=== PATIENT | male | born 1995 | race Caucasian/White ===

== ENCOUNTER 2018-05-28 16:07 | Inpatient (IN) | payer OTHER ==
[2018-05-28] MEDS ORDERED: LORazepam 2 MG/ML SDV VIAL ONE ×2 (16:20→16:21)
[2018-05-28] MEDS ORDERED: SODIUM CHLORIDE 1,000 ML IV STA (16:26)
[2018-05-28 16:38] VITALS: BMI 22.4
--- NOTE | 2018-05-28 16:38 | PDOC ---
History of Present Illness - General Chief Complaint: Seizure Stated Complaint: SEIZURE Time Seen by Provider: 05/28/18 16:20 History Source: Group Home Records, Old Records Exam Limitations: Clinical Condition - History of Present Illness Initial Comments: 23 y/o male presenting to [facility] ER via BLS ambulance from [facility]. Per transfer form, pt has experienced multiple seizures starting yesterday. Duration lasting 20s-3min. Diastat was given today at 14:35. Three seizure episodes were reportedly witnessed today. Unable to determine exciting events. No reported illness. No recent changes in pts medication regimen noted in facility paperwork. Seizures managed by Lamotrigine 62.5mg BID and Carbamazepine XR 400mg BID with abortive PRN Diastat PCP: Dr. Ochoa Neurologist: Mike Ham (Tele: [phone]) Medical Hx: - Agenesis of Corpus Callosum - Microcephaly - Global developmental delay - Generalized convulsive epilepsy - Profound MR - Asthma - Osteoporosis - Scoliosis - Congenital BL hip dysplasia Past History - Past Medical History Allergies/Adverse Reactions: Allergies Allergy/AdvReac Type Severity Reaction Status Date / Time apple [Apple] AdvReac Verified 05/28/18 16:34 BABY POWDER AdvReac Mild Uncoded 05/28/18 16:34 Home Medications: Ambulatory Orders Calcium 250Mg/Vit-D 125 Units [Oscal 250 mg+D -] 1 combo PO BID 12/13/13 Carbamazepine [Tegretol -] 400 mg PO BID 12/13/13 Cholecalciferol (Vitamin D3) [Vitamin D3] 2,000 unit PO DAILY 12/13/13 Docusate Sodium [Colace -] 200 mg PO BID 12/13/13 Lamotrigine [Lamictal] 100 mg PO BID 12/13/13 Multivitamin [Multivitamins] 1 each PO DAILY 12/13/13 Polyethylene Glycol 3350 [Miralax 255 gm Btl -] 17 gm PO DAILY 12/13/13 Sennosides [Senokot] 8.6 mg PO BID 12/13/13 Sodium Chloride [Saline Nose [place]] 45 ml NS TID 12/13/13 clonazePAM [KlonoPIN] 0.5 mg PO TID 12/13/13 Asthma: Yes - Immunization History Immunization Up to Date: Yes - Suicide/Smoking/Psychosocial Hx Smoking History: Never smoked Have you smoked in the past 12 months: No Number of Cigarettes Smoked Daily: 0 Substance Use Type: None Review of Systems - Review of Systems Able to Perform ROS?: No Comments:: Pt nonverbal at baseline. *Physical Exam - Physical Exam Comments: Constitutional: Thin male in no acute distress. Found lying prone on EMS stretcher. At baseline per aid at bedside. Head: Normocephalic. No obvious external signs of trauma. Eyes: Sclerae white. Conjunctiva moist and not injected. EARS: No discharge. NOSE: No nasal discharge. THROAT: Oral cavity normal without inflammation, swelling, exudate, or lesions. Unable to visualize pharynx. Neck: Supple, trachea is midline. Cardiovascular: Regular rate and regular rhythm. No murmur, rubs, clicks, or gallops. Peripheral pulses: Radial pulses full. Respiratory: Breathing unlabored. Equal chest rise and fall. Clear to auscultation bilaterally. No stridor, no wheezing, no rhonchi. Gastrointestinal: abdomen is soft, non-tender, non-distended. Neuro: Alert, nonverbal. Moving all four extremities spontaneously. Unable to assess strength as pt does not follow commands at baseline. Skin: Subjectively feverish but otherwise dry and intact. No bruising, rashes, or other lesions. ED Treatment Course - LABORATORY CBC & Chemistry Diagram: 05/28/18 16:40 05/28/18 16:40 Medical Decision Making - Medical Decision Making *Reviewed vital signs, nursing notes, and prior visit documentation (if available). Just after arrival in the department, witnessed Tonic-clonic activity with gaze fixed to right side, duration approx. 1 min. Ativan administered IV. Initiated sepsis workup as pt is subjectively feverish; vitals have not been obtained at this time. 23 y/o male presenting with increased seizure frequency x2 days with known seizure disorder. Afebrile (rectally). Vitals unremarkable. EKG: Sinus bradycardia rhythm with a ventricular rate of 56 bpm. Normal axis. Normal intervals. No ST segment elevation or depression. No hyperacute T waves. No pathologic Q waves. CBC unremarkable for anemia or leukocytosis. Low suspicion for infectious cause given no leukocytosis or fever. CMP unremarkable for electrolyte derangement. LFTs not elevated. Troponin not elevated. Other cardiac profile markers normal. Low suspicion for cardiac cause. Will not obtain second troponin given reassuring EKG. Lactic acid not elevated. UA unremarkable for pyuria, leukocyte esterase, or nitrites. Low suspicion for UTI. Culture pending. Suspect blood is from traumatic straight catheterization. 18:48 Telephone page sent via answering service for covering physician (Dr. Schroeder) for pts neurologist, Dr. Ham. Awaiting call back. Ordered evening doses of antiepileptics. Doses confirmed by medication list provided today by [facility] staff member. 19:[address] Torre. Verbally appraised of the pts HPI and current condition. Requested neurology consult from Dr. Rajan. Agreed to admit pt to telemetry on observation status. 19:[address] Nieto of neuro service. Suggest pt should receive antiepileptics at home dose tonight with 1g Keppra as standing order if pt seizes again. Also requested antiepileptic levels sent. *DC/Admit/Observation/Transfer Diagnosis at time of Disposition: Seizures - Discharge Dispostion Condition at time of disposition: Stable Decision to Admit order: Yes - Referrals - Patient Instructions - Post Discharge Activity
[2018-05-28 16:45] LABS: VENOUS PC02 53.4 mmHg (38-52); VENOUS PH 7.36 (7.32-7.42); VENOUS PO2 76.8 mmHg (28-48)
--- NOTE | 2018-05-28 16:47 | PDOC ---
Attending Attestation - Resident Resident Name: Jarett Nathan - ED Attending Attestation I have performed the following: I have examined & evaluated the patient, The case was reviewed & discussed with the resident, I agree w/resident's findings & plan - HPI HPI: 05/28/18 20:02 Gomez 23 YOM from [place] with h/o corpus callosum, microcephaly, epilepsy, asthma, osteoporosis, profound mental retardation, scoliosis, congenital bilateral hip dysplasia presenting with multiple seizures, witnessed at facility. +fevers, cough, decreased appetite and food intake x worsening x 1 week - Physicial Exam PE: 05/28/18 16:43 nonverbal, contracted. actively with tonic clonic seizure. craniofacial deformity and facies. MMM, nl conjunctiva, anicteric; neck supple. lungs clear, RRR, abdomen soft nontender. DAMIAN x4, contracted extremities.. No peripheral edema. normal color for ethnicity, WWP. no rash or lesions. - Medical Decision Making 05/28/18 16:43 Gomez 23 YOM from [place] with h/o corpus callosum, microcephaly, epilepsy, asthma, osteoporosis, profound mental retardation, scoliosis, congenital bilateral hip dysplasia presenting with multiple seizures, witnessed at facility. +fevers, cough, decreased appetite and food intake x worsening x 1 week DDx. seizure, pneumonia, UTI, dehydration, electrolyte/metabolic derangements. Febrile illness, subtherapeutic medication levels. Vitals wnl, no fever rectally. Septic workup including urine and blood cx. VBG normal. lactate normal. coags normal, no WBC ct elevation. trop neg, EKG normal sinus rhythm, no interval abnormalities, narrow QRS, ST and T wave segments and morphology normal, with upsloping segments no reciprocal depressions.. Nonspecific T wave abnormalities ED course: given ativan 2mg IV x1 for seizure. Received diazepam 1.5 hour RN INVASIVE for seizure. given home dose of carbamazepine and lamotrigine, regimen confirmed. seizures controlled since dose of ativan and home regimen. called to private neurologist, left message. no abx given as no fever or signs of infection. UA and cultures pending. CXR limited due to habitus/arm in way, suboptimal. may need to be repeated as inpatient, but no focal findings or respiratory distress, possibly viral etiology so continue to trend. admit to dr. Torre, medical management, seizure management, inpatient neuro consult and continued monitoring. 05/28/18 19:44 Heart Score/ECG Review - ECG Impressions Comment:: 05/28/18 18:02 EKG normal sinus rhythm, no interval abnormalities, narrow QRS, ST and T wave segments and morphology normal. Nonspecific T wave abnormalities, upsloping ST segments w/o reciprocal changes. no prior EKGs.
[2018-05-28 16:54] LABS: BASO % 0.6 % (0-2.0); HEMATOCRIT 42.9 % (35.4-49); HEMOGLOBIN 14.1 GM/dL (11.7-16.9); LYMPH % 39.1 % (8-40); MCH 30.4 pg (25.7-33.7); MEAN CELL VOLUME 92.3 fl (80-96); MEAN PLT VOLUME 10.1 fl (7.5-11.1); MONO % 8.5 % (3.8-10.2); NEUT % 51.8 % (42.8-82.8); PLATELET COUNT 216 K/MM3 (134-434); RBC 4.65 M/mm3 (4.00-5.60); RDW 13.2 % (11.9-15.9); WHITE BLOOD COUNT 6.4 K/mm3 (4.0-10.0)
[2018-05-28 17:26] LABS: INR 1.21 (0.83-1.09); PROTHROMBIN TIME (PATIENT) 13.7 SEC (9.7-13.0)
[2018-05-28 17:48] LABS: ALBUMIN 4.2 g/dl (3.4-5.0); ALK PHOS 135 U/L (45-117); ANION GAP 11 MMOL/L (8-16); BILIRUBIN,TOTAL 0.4 mg/dL (0.2-1); BLOOD UREA NITROGEN 12 mg/dL (7-18); CALCIUM 9.4 mg/dL (8.5-10.1); CHLORIDE 106 mmol/L (98-107); CO2 28 mmol/L (21-32); CREATININE 0.9 mg/dL (0.55-1.3); GLUCOSE,RANDOM 110 mg/dL (74-106); POTASSIUM 4.1 mmol/L (3.5-5.1); SGOT/AST 19 U/L (15-37); SGPT/ALT 22 U/L (13-61); SODIUM 145 mmol/L (136-145); TOT PROT 7.4 g/dl (6.4-8.2)
[2018-05-28] MEDS ORDERED: lamoTRIgine 25 MG TABLET PO ONE (18:56)
[2018-05-28] MEDS ORDERED: carBAMazepine XR 400 MG TAB.ER.12H PO STA (18:57)
[2018-05-28] MEDS ORDERED: lamoTRIgine 25 MG TABLET ONE (19:32)
[2018-05-28] MEDS ORDERED: carBAMazepine 200 MG TABLET ONE ×2 (19:32→22:16)
[2018-05-28] MEDS ORDERED: levETIRAcetam 500 MG/5 ML INJECTION VIAL IVPB PRN (19:43)
--- NOTE | 2018-05-28 19:48 | HP ---
Admitting History and Physical - Primary Care Physician PCP: Stacey Torre - Admission History of Present Illness: Patricia 23 YOM from [place] with h/o corpus callosum, microcephaly, epilepsy, asthma, osteoporosis, profound mental retardation, scoliosis, congenital bilateral hip dysplasia presenting with multiple seizures, witnessed at facility. 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 - Smoking History Smoking history: Never smoked Have you smoked in the past 12 months: No Aproximately how many cigarettes per day: 0 - Alcohol/Substance Use Hx Alcohol Use: No Home Medications - Allergies Allergies/Adverse Reactions: Allergies Allergy/AdvReac Type Severity Reaction Status Date / Time apple [Apple] AdvReac Verified 05/28/18 16:34 BABY POWDER AdvReac Mild Uncoded 05/28/18 16:34 - Home Medications Home Medications: Ambulatory Orders Calcium 250Mg/Vit-D 125 Units [Oscal 250 mg+D -] 1 combo PO BID 12/13/13 Carbamazepine [Tegretol -] 400 mg PO BID 12/13/13 Cholecalciferol (Vitamin D3) [Vitamin D3] 2,000 unit PO DAILY 12/13/13 Docusate Sodium [Colace -] 200 mg PO BID 12/13/13 Lamotrigine [Lamictal] 100 mg PO BID 12/13/13 Multivitamin [Multivitamins] 1 each PO DAILY 12/13/13 Polyethylene Glycol 3350 [Miralax 255 gm Btl -] 17 gm PO DAILY 12/13/13 Sennosides [Senokot] 8.6 mg PO BID 12/13/13 Sodium Chloride [Saline Nose [place]] 45 ml NS TID 12/13/13 clonazePAM [KlonoPIN] 0.5 mg PO TID 12/13/13 Physical Examination Vital Signs: Vital Signs Temperature 99.2 F 05/28/18 16:34 Pulse Rate 57 L 05/28/18 16:34 Respiratory Rate 18 05/28/18 16:34 Blood Pressure 126/62 05/28/18 16:34 O2 Sat by Pulse Oximetry (%) 95 05/28/18 16:34 Constitutional: Yes: No Distress HENT: Yes: Atraumatic Neck: Yes: Supple Cardiovascular: Yes: Regular Rate and Rhythm Respiratory: Yes: CTA Bilaterally Gastrointestinal: Yes: Normal Bowel Sounds Extremities: Yes: WNL Edema: No Peripheral Pulses WNL: Yes Neurological: Yes: Other (awake, calm) Labs: CBC, BMP 05/28/18 16:40 05/28/18 16:40 Problem List - Problems (1) Seizures Assessment/Plan: on meds stable at this time will get neuro involve Code(s): R56.9 - UNSPECIFIED CONVULSIONS (2) Mental retardation Code(s): F79 - UNSPECIFIED INTELLECTUAL DISABILITIES Assessment/Plan Laboratory Tests 05/28/18 05/28/18 05/28/18 16:31 16:40 16:40 WBC 6.4 RBC 4.65 Hgb 14.1 Hct 42.9 MCV 92.3 MCH 30.4 MCHC 33.0 RDW 13.2 Plt Count 216 MPV 10.1 D Absolute Neuts (auto) 3.3 Neutrophils % 51.8 D Lymphocytes % 39.1 D Monocytes % 8.5 Eosinophils % 0.0 Basophils % 0.6 Nucleated RBC % 0 PT with INR INR VBG pH 7.36 POC VBG pCO2 53.4 H POC VBG pO2 76.8 H Mixed VBG HCO3 29.6 H Sodium 145 Potassium 4.1 Chloride 106 Carbon Dioxide 28 Anion Gap 11 BUN 12 Creatinine 0.9 Creat Clearance w eGFR > 60 Random Glucose 110 H Lactic Acid Calcium 9.4 Total Bilirubin 0.4 AST 19 ALT 22 Alkaline Phosphatase 135 H Creatine Kinase 166 Creatine Kinase Index 0.7 CK-MB (CK-2) 1.1 Troponin I Total Protein 7.4 Albumin 4.2 05/28/18 05/28/18 05/28/18 16:40 16:40 16:45 WBC RBC Hgb Hct MCV MCH MCHC RDW Plt Count MPV Absolute Neuts (auto) Neutrophils % Lymphocytes % Monocytes % Eosinophils % Basophils % Nucleated RBC % PT with INR INR VBG pH POC VBG pCO2 POC VBG pO2 Mixed VBG HCO3 Sodium Potassium Chloride Carbon Dioxide Anion Gap BUN Creatinine Creat Clearance w eGFR Random Glucose Lactic Acid 1.8 Calcium Total Bilirubin AST ALT Alkaline Phosphatase Creatine Kinase Creatine Kinase Index CK-MB (CK-2) Cancelled Troponin I < 0.02 Total Protein Albumin 05/28/18 17:04 WBC RBC Hgb Hct MCV MCH MCHC RDW Plt Count MPV Absolute Neuts (auto) Neutrophils % Lymphocytes % Monocytes % Eosinophils % Basophils % Nucleated RBC % PT with INR 13.70 H INR 1.21 H VBG pH POC VBG pCO2 POC VBG pO2 Mixed VBG HCO3 Sodium Potassium Chloride Carbon Dioxide Anion Gap BUN Creatinine Creat Clearance w eGFR Random Glucose Lactic Acid Calcium Total Bilirubin AST ALT Alkaline Phosphatase Creatine Kinase Creatine Kinase Index CK-MB (CK-2) Troponin I Total Protein Albumin Active Medications Generic Name Dose Route Start Last Admin Trade Name Freq PRN Reason Stop Dose Admin Carbamazepine 400 mg 05/28/18 22:00 Tegretol - PO BID LOYDA Clonazepam 0.5 mg 05/28/18 22:00 Klonopin - PO TID LOYDA Heparin Sodium (Porcine) 5,000 unit 05/28/18 22:00 Heparin - SQ BID LOYDA Levetiracetam 1,000 mg 05/28/18 19:43 Keppra Injection - IVPB ONCE PRN Seizure Polyethylene Glycol 17 gm 05/29/18 10:00 Miralax (For Bowel Prep) - PO DAILY LOYDA
[2018-05-28 20:43] LABS: URINE APPEARANCE CLEAR; URINE BILIRUBIN NEGATIVE (<2.0 mg/dL); URINE COLOR LTYELLOW; URINE GLUCOSE (UA) NEGATIVE (NEGATIVE); URINE KETONE NEGATIVE (NEGATIVE); URINE LEUK ESTERASE TRACE (NEGATIVE); URINE NITRITE NEGATIVE (NEGATIVE); URINE PROTEIN NEGATIVE (NEGATIVE); URINE UROBILINOGEN NEGATIVE mg/dL (0.2-1.0)
[2018-05-28 20:48] LABS: URINE BACTERIA RARE /hpf (NONE SEEN)
[2018-05-28] MEDS ORDERED: HEPARIN NA (PORCINE) 5,000 UNITS/ML 1ML VIAL ONE (22:16)
[2018-05-28] MEDS ORDERED: clonazePAM 0.5 MG TABLET ONE (22:16)
[2018-05-28] MEDS: carBAMazepine 200 MG TABLET PO SCH (22:17)
[2018-05-28] MEDS: clonazePAM 0.5 MG TABLET PO SCH (22:18)
[2018-05-28] MEDS: HEPARIN NA (PORCINE) 5,000 UNITS/ML 1ML VIAL SQ SCH (22:18)
[2018-05-29] MEDS: clonazePAM 0.5 MG TABLET PO SCH ×3 (06:14→22:36)
[2018-05-29 06:19] LABS: BASO % 0.5 % (0-2.0); HEMATOCRIT 40.7 % (35.4-49); HEMOGLOBIN 13.4 GM/dL (11.7-16.9); LYMPH % 37.9 % (8-40); MCH 30.3 pg (25.7-33.7); MEAN CELL VOLUME 91.9 fl (80-96); MEAN PLT VOLUME 9.7 fl (7.5-11.1); MONO % 8.8 % (3.8-10.2); NEUT % 52.8 % (42.8-82.8); PLATELET COUNT 176 K/MM3 (134-434); RBC 4.43 M/mm3 (4.00-5.60); RDW 13.3 % (11.9-15.9); WHITE BLOOD COUNT 6.3 K/mm3 (4.0-10.0)
[2018-05-29 09:02] LABS: ALK PHOS 124 U/L (45-117); ANION GAP 7 MMOL/L (8-16); BILIRUBIN,TOTAL 0.4 mg/dL (0.2-1); BLOOD UREA NITROGEN 7 mg/dL (7-18); CALCIUM 8.7 mg/dL (8.5-10.1); CHLORIDE 107 mmol/L (98-107); CO2 29 mmol/L (21-32); CREATININE 0.8 mg/dL (0.55-1.3); GLUCOSE,RANDOM 84 mg/dL (74-106); POTASSIUM 3.8 mmol/L (3.5-5.1); SGOT/AST 14 U/L (15-37); SGPT/ALT 21 U/L (13-61); SODIUM 143 mmol/L (136-145); TOT PROT 6.9 g/dl (6.4-8.2)
--- NOTE | 2018-05-29 09:35 | EKG ---
Test Reason : Blood Pressure : / mmHG Vent. Rate : 056 BPM Atrial Rate : 056 BPM P-R Int : 150 ms QRS Dur : 112 ms QT Int : 402 ms P-R-T Axes : 020 071 060 degrees QTc Int : 387 ms SINUS BRADYCARDIA OTHERWISE NORMAL ECG WHEN COMPARED WITH ECG OF 28-MAY-2018 16:56, NO SIGNIFICANT CHANGE WAS FOUND Confirmed by JENNIFER LENZ MD ([id number]) on 05/29/2018 9:35:36 AM Referred By: Confirmed By:JENNIFER LENZ MD
[2018-05-29] MEDS: POLYETHYLENE GLYCOL 3350 255 GM BTL PO SCH (09:50)
[2018-05-29] MEDS: HEPARIN NA (PORCINE) 5,000 UNITS/ML 1ML VIAL SQ SCH ×2 (09:50→22:36)
[2018-05-29] MEDS: carBAMazepine 200 MG TABLET PO SCH ×2 (09:50→22:36)
[2018-05-29] MEDS ORDERED: FLU VACCINE QUAD 60 MCG/0.5 ML (MDV 18-19) IM ONE (10:00)
--- NOTE | 2018-05-29 10:51 | CON.NEURO ---
Consult Consult Specialty:: neurology Referred by:: Dr. Torre Reason for Consultation:: Breakthrough seizures - History of Present Illness Chief Complaint: Breakthrough seizures History of Present Illness: 23 year old man with profound MR, microcephaly, epilepsy managed by carbamazepine and lamotrigine had flurry of 3 seizures yesterday. Referred from [facility] for further management. No clear provoking factors. CMZ level was just supratherapeutic. 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 - Alcohol/Substance Use Hx Alcohol Use: No - Smoking History Smoking history: Never smoked Have you smoked in the past 12 months: No Aproximately how many cigarettes per day: 0 - Social History Usual Living Arrangement: Intermediate ADL: Support Services Home Medications - Allergies Allergies/Adverse Reactions: Allergies Allergy/AdvReac Type Severity Reaction Status Date / Time apple [Apple] AdvReac Verified 05/28/18 16:34 BABY POWDER AdvReac Mild Uncoded 05/28/18 16:34 - Home Medications Home Medications: Ambulatory Orders Calcium 250Mg/Vit-D 125 Units [Oscal 250 mg+D -] 1 combo PO BID 12/13/13 Carbamazepine [Tegretol -] 400 mg PO BID 12/13/13 Cholecalciferol (Vitamin D3) [Vitamin D3] 2,000 unit PO DAILY 12/13/13 Docusate Sodium [Colace -] 200 mg PO BID 12/13/13 Lamotrigine [Lamictal] 100 mg PO BID 12/13/13 Multivitamin [Multivitamins] 1 each PO DAILY 12/13/13 Polyethylene Glycol 3350 [Miralax 255 gm Btl -] 17 gm PO DAILY 12/13/13 Sennosides [Senokot] 8.6 mg PO BID 12/13/13 Sodium Chloride [Saline Nose [place]] 45 ml NS TID 12/13/13 clonazePAM [KlonoPIN] 0.5 mg PO TID 12/13/13 Physical Exam-Neuro Vital Signs: Vital Signs Temperature 98.2 F 05/29/18 08:40 Pulse Rate 91 H 05/29/18 08:40 Respiratory Rate 22 H 05/29/18 08:46 Blood Pressure 117/79 05/29/18 08:40 O2 Sat by Pulse Oximetry (%) 98 05/29/18 08:46 Constitutional: Yes: Other (patient lying in bed, spastic, no eye contact or attempt at attentiveness but at baseline) Labs: CBC, BMP 05/29/18 05:30 05/29/18 05:30 INR, PTT INR 1.21 (0.83-1.09) H 05/28/18 17:04 - Neuro Exam Level Of Consciousness: Yes: Alert (as alert as he gets, but this is not alert, he is awake and able to take food when fed) Speech: Other (non verbal (baseline)) Cranial Nerves II-XII Intact: Yes DTR's: 1+ Left Bicep, 1+ Right Bicep, 1+ Left Tricep, 1+ Right Tricep Motor Strength: 0/5: Left Arm, Right Arm, Left Leg, Right Leg (patient contracted ) Problem List - Problems (1) Seizures Code(s): R56.9 - UNSPECIFIED CONVULSIONS Assessment/Plan The patient had breakthrough seizures on current regimen. We can increase the lamotrigine a little from current dose as patient is on enzyme inducing drug ( carbamazepine).
--- NOTE | 2018-05-29 16:37 | PN ---
Progress Note, Physician - Current Medication List Current Medications: Active Medications Carbamazepine (Tegretol -) 400 mg PO BID [facility] Last Admin: 05/29/18 09:50 Dose: 400 mg Clonazepam (Klonopin -) 0.5 mg PO TID [facility] Last Admin: 05/29/18 14:11 Dose: 0.5 mg Heparin Sodium (Porcine) (Heparin -) 5,000 unit SQ BID [facility] Last Admin: 05/29/18 09:50 Dose: 5,000 unit Lamotrigine (Lamictal -) 150 mg PO BID [facility] Levetiracetam (Keppra Injection -) 1,000 mg IVPB ONCE PRN PRN Reason: Seizure Polyethylene Glycol (Miralax (For Bowel Prep) -) 17 gm PO DAILY [facility] Last Admin: 05/29/18 09:50 Dose: Not Given - Objective Vital Signs: Vital Signs Temperature 98.4 F 05/29/18 14:35 Pulse Rate 70 05/29/18 14:35 Respiratory Rate 19 05/29/18 14:35 Blood Pressure 137/52 L 05/29/18 14:35 O2 Sat by Pulse Oximetry (%) 98 05/29/18 08:46 Constitutional: Yes: No Distress HENT: Yes: Atraumatic Neck: Yes: Supple Cardiovascular: Yes: Regular Rate and Rhythm Respiratory: Yes: Rhonchi Gastrointestinal: Yes: Normal Bowel Sounds Extremities: Yes: WNL Neurological: Yes: Alert, Oriented Labs: CBC, BMP 05/29/18 05:30 05/29/18 05:30 INR, PTT INR 1.21 (0.83-1.09) H 05/28/18 17:04 Problem List - Problems (1) Seizures Assessment/Plan: on meds stable at this time will get neuro involve Code(s): R56.9 - UNSPECIFIED CONVULSIONS (2) Mental retardation Code(s): F79 - UNSPECIFIED INTELLECTUAL DISABILITIES
[2018-05-29] MEDS ORDERED: PT OWN MED DRAWER 7, Y5N ONE (22:23)
[2018-05-29] MEDS: lamoTRIgine 100 MG TABLET (FP) PO SCH (22:37)
[2018-05-30] MEDS: clonazePAM 0.5 MG TABLET PO SCH ×3 (05:43→22:02)
[2018-05-30] MEDS ORDERED: PT OWN MED DRAWER 7, Y5N ONE (09:06)
[2018-05-30] MEDS: HEPARIN NA (PORCINE) 5,000 UNITS/ML 1ML VIAL SQ SCH ×2 (10:27→22:01)
[2018-05-30] MEDS: lamoTRIgine 100 MG TABLET (FP) PO SCH ×2 (10:27→22:02)
[2018-05-30] MEDS: carBAMazepine 200 MG TABLET PO SCH ×2 (10:28→22:02)
[2018-05-30] MEDS: POLYETHYLENE GLYCOL 3350 255 GM BTL PO SCH (10:28)
--- NOTE | 2018-05-30 18:34 | PN ---
Progress Note, Physician History of Present Illness: comfortable - Current Medication List Current Medications: Active Medications Carbamazepine (Tegretol -) 400 mg PO BID [facility] Last Admin: 05/30/18 10:28 Dose: 400 mg Clonazepam (Klonopin -) 0.5 mg PO TID [facility] Last Admin: 05/30/18 15:00 Dose: Not Given Heparin Sodium (Porcine) (Heparin -) 5,000 unit SQ BID [facility] Last Admin: 05/30/18 10:27 Dose: 5,000 unit Lamotrigine (Lamictal -) 150 mg PO BID [facility] Last Admin: 05/30/18 10:27 Dose: 150 mg Levetiracetam (Keppra Injection -) 1,000 mg IVPB ONCE PRN PRN Reason: Seizure Polyethylene Glycol (Miralax (For Bowel Prep) -) 17 gm PO DAILY [facility] Last Admin: 05/30/18 10:28 Dose: 17 gm - Objective Vital Signs: Vital Signs Temperature 98.0 F 05/30/18 13:30 Pulse Rate 96 H 05/30/18 13:30 Respiratory Rate 20 05/30/18 13:30 Blood Pressure 145/56 L 05/30/18 13:30 O2 Sat by Pulse Oximetry (%) 95 05/30/18 10:00 Constitutional: Yes: No Distress HENT: Yes: Atraumatic Neck: Yes: Supple Cardiovascular: Yes: Regular Rate and Rhythm Respiratory: Yes: CTA Bilaterally Gastrointestinal: Yes: Normal Bowel Sounds Extremities: Yes: WNL Edema: No Peripheral Pulses WNL: Yes Neurological: Yes: Alert Labs: CBC, BMP 05/29/18 05:30 05/29/18 05:30 INR, PTT INR 1.21 (0.83-1.09) H 05/28/18 17:04 Problem List - Problems (1) Seizures Assessment/Plan: on meds stable neuro on board Code(s): R56.9 - UNSPECIFIED CONVULSIONS (2) Mental retardation Code(s): F79 - UNSPECIFIED INTELLECTUAL DISABILITIES
[2018-05-31] MEDS: clonazePAM 0.5 MG TABLET PO SCH ×3 (05:57→22:30)
[2018-05-31] MEDS ORDERED: PT OWN MED DRAWER 7, Y5N ONE (13:00)
[2018-05-31] MEDS: lamoTRIgine 100 MG TABLET (FP) PO SCH (13:10)
[2018-05-31] MEDS: HEPARIN NA (PORCINE) 5,000 UNITS/ML 1ML VIAL SQ SCH ×2 (13:10→23:00)
[2018-05-31] MEDS: POLYETHYLENE GLYCOL 3350 255 GM BTL PO SCH (13:11)
[2018-05-31] MEDS: carBAMazepine 200 MG TABLET PO SCH ×2 (13:11→23:00)
--- NOTE | 2018-05-31 14:24 | PN ---
Progress Note, Physician - Current Medication List Current Medications: Active Medications Carbamazepine (Tegretol -) 400 mg PO BID [facility] Last Admin: 05/31/18 13:11 Dose: 400 mg Clonazepam (Klonopin -) 0.5 mg PO TID [facility] Last Admin: 05/31/18 13:10 Dose: 0.5 mg Heparin Sodium (Porcine) (Heparin -) 5,000 unit SQ BID [facility] Last Admin: 05/31/18 13:10 Dose: 5,000 unit Lamotrigine (Lamictal -) 150 mg PO BID [facility] Last Admin: 05/31/18 13:10 Dose: 150 mg Levetiracetam (Keppra Injection -) 1,000 mg IVPB ONCE PRN PRN Reason: Seizure Polyethylene Glycol (Miralax (For Bowel Prep) -) 17 gm PO DAILY [facility] Last Admin: 05/31/18 13:11 Dose: Not Given - Objective Vital Signs: Vital Signs Temperature 98.5 F 05/31/18 06:00 Pulse Rate 52 L 05/31/18 06:00 Respiratory Rate 17 05/31/18 06:00 Blood Pressure 96/52 L 05/31/18 06:00 O2 Sat by Pulse Oximetry (%) 100 05/30/18 22:00 Constitutional: Yes: Calm HENT: Yes: Atraumatic Neck: Yes: Supple Cardiovascular: Yes: Regular Rate and Rhythm Respiratory: Yes: CTA Bilaterally Gastrointestinal: Yes: Normal Bowel Sounds Extremities: Yes: WNL Edema: No Peripheral Pulses WNL: Yes Neurological: Yes: Alert Labs: CBC, BMP 05/29/18 05:30 05/29/18 05:30 INR, PTT INR 1.21 (0.83-1.09) H 05/28/18 17:04 Problem List - Problems (1) Seizures Assessment/Plan: on meds stable neuro on board Code(s): R56.9 - UNSPECIFIED CONVULSIONS (2) Mental retardation Code(s): F79 - UNSPECIFIED INTELLECTUAL DISABILITIES
[2018-06-01] MEDS ORDERED: PT OWN MED DRAWER 7, Y5N ONE ×3 (00:17→15:55)
[2018-06-01] MEDS: lamoTRIgine 100 MG TABLET (FP) PO SCH ×3 (00:18→21:12)
[2018-06-01] MEDS: clonazePAM 0.5 MG TABLET PO SCH ×3 (06:56→21:11)
[2018-06-01] MEDS: HEPARIN NA (PORCINE) 5,000 UNITS/ML 1ML VIAL SQ SCH ×2 (10:42→21:11)
[2018-06-01] MEDS: carBAMazepine 200 MG TABLET PO SCH ×2 (10:43→21:12)
[2018-06-01] MEDS: POLYETHYLENE GLYCOL 3350 255 GM BTL PO SCH (10:45)
--- NOTE | 2018-06-01 11:14 | PN ---
Progress Note, Physician History of Present Illness: no new seizures noted at baseline according to aide according to nurse difficult to get IV in as he is restless - Current Medication List Current Medications: Active Medications Carbamazepine (Tegretol -) 400 mg PO BID [facility] Last Admin: 06/01/18 10:43 Dose: 400 mg Clonazepam (Klonopin -) 0.5 mg PO TID [facility] Last Admin: 06/01/18 06:56 Dose: 0.5 mg Heparin Sodium (Porcine) (Heparin -) 5,000 unit SQ BID [facility] Last Admin: 06/01/18 10:42 Dose: 5,000 unit Levofloxacin (Levaquin 500 Mg Premixed Ivpb -) 500 mg in 100 mls @ 100 mls/hr IVPB DAILY [facility]; Protocol Last Admin: 06/01/18 10:42 Dose: 100 mls/hr Lamotrigine (Lamictal -) 150 mg PO BID [facility] Last Admin: 06/01/18 10:43 Dose: 150 mg Levetiracetam (Keppra Injection -) 1,000 mg IVPB ONCE PRN PRN Reason: Seizure Polyethylene Glycol (Miralax (For Bowel Prep) -) 17 gm PO DAILY [facility] Last Admin: 06/01/18 10:45 Dose: 17 gm - Objective Vital Signs: Vital Signs Temperature 97.8 F 06/01/18 02:00 Pulse Rate 51 L 06/01/18 02:00 Respiratory Rate 18 06/01/18 02:00 Blood Pressure 109/58 L 06/01/18 02:00 O2 Sat by Pulse Oximetry (%) 100 05/31/18 22:00 Labs: CBC, BMP 05/29/18 05:30 05/29/18 05:30 INR, PTT INR 1.21 (0.83-1.09) H 05/28/18 17:04 Problem List - Problems (1) Mental retardation Code(s): F79 - UNSPECIFIED INTELLECTUAL DISABILITIES (2) Seizures Code(s): R56.9 - UNSPECIFIED CONVULSIONS Assessment/Plan h/o corpus callosum, microcephaly, epilepsy, asthma, osteoporosis, profound mental retardation, scoliosis, congenital bilateral hip dysplasia presenting with multiple seizures, witnessed at facility. +fevers, cough, decreased appetite and food intake x worsening x 1 week lamictal has been inc to 150 BID cont tegtretol 400BID --can check level in 4 weeks and FU level outpt no new seziures -stable unclear if he requires further ABX, no fever or WBC now , --consider po , given difficulty with IV- if still necessary avoid quinolones as they may reduce seizure threshold from neuro stand point cleared and can fu with outpt primary neuro DR KEITH
--- NOTE | 2018-06-01 13:07 | CON.ID ---
Consult - History of Present Illness History of Present Illness: 23 y.o. male [place] resident with history of mental retardation, microcephaly, corpus callosum, epilepsy, asthma, scoliosis, and hip dysphagia presents after multiple seizure episodes. He is not nonverbal and not a source of history. Pt was reported to have a cough and mild temperature elevation (99.2 in ER). No other specific complaints other than poor oral intake for the past few days reported. Pt found to have low carbamazapine level and has been evaluated by Neurology. Currently he is alert, without cough or respiratory distress and afebrile. - History Source History Provided By: Medical Record Limitations to Obtaining History: No Limitations - Past Medical History ANESTHESIOLOGIST AND CRITICAL CARE: Yes: Seizure, Other (mental retardation/microcephaly) - Alcohol/Substance Use Hx Alcohol Use: No - Smoking History Smoking history: Never smoked Have you smoked in the past 12 months: No Aproximately how many cigarettes per day: 0 - Social History Usual Living Arrangement: Shelter ADL: Support Services Home Medications - Allergies Allergies/Adverse Reactions: Allergies Allergy/AdvReac Type Severity Reaction Status Date / Time apple [Apple] AdvReac Verified 05/28/18 16:34 BABY POWDER AdvReac Mild Uncoded 05/28/18 16:34 - Home Medications Home Medications: Ambulatory Orders Calcium 250Mg/Vit-D 125 Units [Oscal 250 mg+D -] 1 combo PO BID 12/13/13 Carbamazepine [Tegretol -] 400 mg PO BID 12/13/13 Cholecalciferol (Vitamin D3) [Vitamin D3] 2,000 unit PO DAILY 12/13/13 Docusate Sodium [Colace -] 200 mg PO BID 12/13/13 Lamotrigine [Lamictal] 100 mg PO BID 12/13/13 Multivitamin [Multivitamins] 1 each PO DAILY 12/13/13 Polyethylene Glycol 3350 [Miralax 255 gm Btl -] 17 gm PO DAILY 12/13/13 Sennosides [Senokot] 8.6 mg PO BID 12/13/13 Sodium Chloride [Saline Nose [place]] 45 ml NS TID 12/13/13 clonazePAM [KlonoPIN] 0.5 mg PO TID 12/13/13 Review of Systems Unable to obtain ROS, reason: pt nonverbal/MR Physical Exam Vital Signs: Vital Signs Temperature 97.6 F 06/01/18 10:00 Pulse Rate 53 L 06/01/18 10:00 Respiratory Rate 20 06/01/18 10:00 Blood Pressure 89/58 L 06/01/18 10:00 O2 Sat by Pulse Oximetry (%) 100 06/01/18 10:00 Constitutional: Yes: No Distress, Calm Cardiovascular: Yes: Regular Rate and Rhythm Respiratory: Yes: CTA Bilaterally Gastrointestinal: Yes: Normal Bowel Sounds, Soft Renal/: Yes: Other (urinates in diaper) Extremities: Yes: WNL Neurological: Yes: Alert Labs: CBC, BMP 05/29/18 05:30 05/29/18 05:30 Microbiology 05/28/18 16:35 Blood - Peripheral Venous Blood Culture - Preliminary NO GROWTH OBTAINED AFTER 72 HOURS, INCUBATION TO CONTINUE FOR 2 DAYS. 05/28/18 16:35 Blood - Peripheral Venous Blood Culture - Preliminary NO GROWTH OBTAINED AFTER 72 HOURS, INCUBATION TO CONTINUE FOR 2 DAYS. 05/28/18 19:49 Urine - Urine - Catheterized Urine Culture - Final Enterococcus Faecalis Imaging - Results Chest X-ray: Report Reviewed Problem List - Problems (1) Mental retardation Code(s): F79 - UNSPECIFIED INTELLECTUAL DISABILITIES (2) Seizures Code(s): R56.9 - UNSPECIFIED CONVULSIONS Assessment/Plan 23 y.o. male [place] resident with PMH of mental retardation, microcephaly, epilepsy , scoliosis, hip dysplasia presenting with multiple seizure episodes initially reported to have a cough. Tmax in ER 99.2F. E. faecalis bacteriuria/possible cystitis Seizures Mental retardation --d/c levaquin -- recommend amoxicillin 875 mg p.o. BID x 5 days -- monitor vitals pt currently afebrile/without leukocytosis -- neurology follow up Thank you
[2018-06-01] MEDS: AMOXICILLIN 500 MG CAPSULE (FP) PO SCH ×2 (15:49→21:11)
--- NOTE | 2018-06-01 19:04 | PN ---
Progress Note, Physician History of Present Illness: comfortable - Current Medication List Current Medications: Active Medications Amoxicillin (Amoxicillin -) 500 mg PO TID [facility] Last Admin: 06/01/18 15:49 Dose: 500 mg Carbamazepine (Tegretol -) 400 mg PO BID [facility] Last Admin: 06/01/18 10:43 Dose: 400 mg Clonazepam (Klonopin -) 0.5 mg PO TID [facility] Last Admin: 06/01/18 15:49 Dose: 0.5 mg Heparin Sodium (Porcine) (Heparin -) 5,000 unit SQ BID [facility] Last Admin: 06/01/18 10:42 Dose: 5,000 unit Lamotrigine (Lamictal -) 150 mg PO BID [facility] Last Admin: 06/01/18 10:43 Dose: 150 mg Levetiracetam (Keppra Injection -) 1,000 mg IVPB ONCE PRN PRN Reason: Seizure Polyethylene Glycol (Miralax (For Bowel Prep) -) 17 gm PO DAILY [facility] Last Admin: 06/01/18 10:45 Dose: 17 gm - Objective Vital Signs: Vital Signs Temperature 98 F 06/01/18 18:02 Pulse Rate 68 06/01/18 18:02 Respiratory Rate 20 06/01/18 18:02 Blood Pressure 123/82 06/01/18 18:02 O2 Sat by Pulse Oximetry (%) 100 06/01/18 10:00 Constitutional: Yes: No Distress HENT: Yes: Atraumatic Neck: Yes: Supple Cardiovascular: Yes: Regular Rate and Rhythm Respiratory: Yes: CTA Bilaterally Gastrointestinal: Yes: Normal Bowel Sounds Extremities: Yes: WNL Edema: No Neurological: Yes: Alert Labs: CBC, BMP 05/29/18 05:30 05/29/18 05:30 INR, PTT INR 1.21 (0.83-1.09) H 05/28/18 17:04 Problem List - Problems (1) Seizures Assessment/Plan: on meds stable neuro on board Code(s): R56.9 - UNSPECIFIED CONVULSIONS (2) Mental retardation Code(s): F79 - UNSPECIFIED INTELLECTUAL DISABILITIES (3) UTI (urinary tract infection) Assessment/Plan: on po abx per id Code(s): N39.0 - URINARY TRACT INFECTION, SITE NOT SPECIFIED Assessment/Plan ut planning for tomorrow left [facility] [place]
[2018-06-02 06:21] LABS: BASO % 0.3 % (0-2.0); EOS % 1.2 % (0-4.5); HEMATOCRIT 43.4 % (35.4-49); HEMOGLOBIN 14.4 GM/dL (11.7-16.9); LYMPH % 36.4 % (8-40); MCH 30.5 pg (25.7-33.7); MCHC 33.1 g/dl (32.0-35.9); MEAN PLT VOLUME 9.6 fl (7.5-11.1); MONO % 8.2 % (3.8-10.2); NEUT % 53.9 % (42.8-82.8); PLATELET COUNT 171 K/MM3 (134-434); RBC 4.71 M/mm3 (4.00-5.60); RDW 13.3 % (11.9-15.9); WHITE BLOOD COUNT 6.4 K/mm3 (4.0-10.0)
[2018-06-02] MEDS: AMOXICILLIN 500 MG CAPSULE (FP) PO SCH ×2 (06:24→13:36)
[2018-06-02] MEDS: clonazePAM 0.5 MG TABLET PO SCH ×2 (06:24→13:35)
[2018-06-02 08:01] LABS: ALK PHOS 125 U/L (45-117); ANION GAP 6 MMOL/L (8-16); BILIRUBIN,TOTAL 0.3 mg/dL (0.2-1); BLOOD UREA NITROGEN 11 mg/dL (7-18); CALCIUM 9.2 mg/dL (8.5-10.1); CHLORIDE 106 mmol/L (98-107); CO2 31 mmol/L (21-32); CREATININE 0.9 mg/dL (0.55-1.3); GLUCOSE,RANDOM 87 mg/dL (74-106); POTASSIUM 4.2 mmol/L (3.5-5.1); SGOT/AST 12 U/L (15-37); SGPT/ALT 21 U/L (13-61); SODIUM 143 mmol/L (136-145); TOT PROT 6.9 g/dl (6.4-8.2)
[2018-06-02] MEDS ORDERED: PT OWN MED DRAWER 7, Y5N ONE (10:18)
[2018-06-02] MEDS: lamoTRIgine 100 MG TABLET (FP) PO SCH (10:28)
[2018-06-02] MEDS: HEPARIN NA (PORCINE) 5,000 UNITS/ML 1ML VIAL SQ SCH (10:28)
[2018-06-02] MEDS: POLYETHYLENE GLYCOL 3350 255 GM BTL PO SCH (10:28)
[2018-06-02] MEDS: carBAMazepine 200 MG TABLET PO SCH (10:28)
[2018-06-02 11:33] VITALS: BP 119/62; PULSE 95; TEMP 97.1
--- NOTE | 2018-06-02 11:33 | PN ---
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 - Current Medication List Current Medications: Active Medications Amoxicillin (Amoxicillin -) 500 mg PO TID [facility] Last Admin: 06/02/18 06:24 Dose: 500 mg Carbamazepine (Tegretol -) 400 mg PO BID [facility] Last Admin: 06/02/18 10:28 Dose: 400 mg Clonazepam (Klonopin -) 0.5 mg PO TID [facility] Last Admin: 06/02/18 06:24 Dose: 0.5 mg Heparin Sodium (Porcine) (Heparin -) 5,000 unit SQ BID [facility] Last Admin: 06/02/18 10:28 Dose: 5,000 unit Lamotrigine (Lamictal -) 150 mg PO BID [facility] Last Admin: 06/02/18 10:28 Dose: 150 mg Levetiracetam (Keppra Injection -) 1,000 mg IVPB ONCE PRN PRN Reason: Seizure Polyethylene Glycol (Miralax (For Bowel Prep) -) 17 gm PO DAILY [facility] Last Admin: 06/02/18 10:28 Dose: 17 gm - Objective Vital Signs: Vital Signs Temperature 97.6 F 06/02/18 01:29 Pulse Rate 68 06/02/18 01:29 Respiratory Rate 20 06/02/18 01:29 Blood Pressure 110/60 06/02/18 01:29 O2 Sat by Pulse Oximetry (%) 100 06/01/18 22:00 Constitutional: Yes: No Distress, Calm Cardiovascular: Yes: Regular Rate and Rhythm Respiratory: Yes: Regular, Other Gastrointestinal: Yes: Normal Bowel Sounds, Soft Musculoskeletal: Yes: WNL Extremities: Yes: Other (contracted) Neurological: Yes: Alert, Other Psychiatric: Yes: Other Labs: CBC, BMP 06/02/18 05:30 06/02/18 05:30 INR, PTT INR 1.21 (0.83-1.09) H 05/28/18 17:04 Assessment/Plan Problem List - Problems (1) Mental retardation Code(s): F79 - UNSPECIFIED INTELLECTUAL DISABILITIES (2) Seizures Code(s): R56.9 - UNSPECIFIED CONVULSIONS Assessment/Plan 23 y.o. male [place] resident with PMH of mental retardation, microcephaly, epilepsy , scoliosis, hip dysplasia presenting with multiple seizure episodes initially reported to have a cough. Tmax in ER 99.2F. E. faecalis bacteriuria/possible cystitis Seizures Mental retardation continue current mgmt rest as per the team
--- NOTE | 2018-06-02 13:55 | DS ---
Physical Examination Vital Signs: Vital Signs Temperature 97.1 F L 06/02/18 10:00 Pulse Rate 95 H 06/02/18 10:00 Respiratory Rate 22 H 06/02/18 10:00 Blood Pressure 119/62 06/02/18 10:00 O2 Sat by Pulse Oximetry (%) 100 06/02/18 10:00 Labs: CBC, BMP 06/02/18 05:30 06/02/18 05:30 Discharge Summary Reason For Visit: SEIZURE Current Active Problems Mental retardation (Acute) Seizures (Acute) UTI (urinary tract infection) (Acute) Condition: Stable - Instructions - Home Medications Comprehensive Discharge Medication List: Ambulatory Orders Calcium 250Mg/Vit-D 125 Units [Oscal 250 mg+D -] 1 combo PO BID 12/13/13 Carbamazepine [Tegretol -] 400 mg PO BID 12/13/13 Cholecalciferol (Vitamin D3) [Vitamin D3] 2,000 unit PO DAILY 12/13/13 Docusate Sodium [Colace -] 200 mg PO BID 12/13/13 Lamotrigine [Lamictal] 100 mg PO BID 12/13/13 Multivitamin [Multivitamins] 1 each PO DAILY 12/13/13 Polyethylene Glycol 3350 [Miralax 255 gm Btl -] 17 gm PO DAILY 12/13/13 Sennosides [Senokot] 8.6 mg PO BID 12/13/13 Sodium Chloride [Saline Nose [place]] 45 ml NS TID 12/13/13 clonazePAM [KlonoPIN] 0.5 mg PO TID 12/13/13 Amoxicillin - [Amoxicillin 500mg Capsule -] 500 mg PO TID #21 capsule 06/01/18 Lamotrigine [LaMICtal -] 150 mg PO BID #60 tablet 06/01/18 NURSE HAS TO GIVE 1 DOSE OF LAMICTAL AND 1 DOSE OF ANTIBIOTICS TO TAKE TO [place] THEY CANNOT GET IT TODAY FROM PHARMACY
== END 2018-06-02 15:47 | DRG 100 ==
LOC: JER 16:07 → JERBED 19:32 → OBSVTOIN 19:32 → JERBED 21:00 → UNDOADMOB 21:00 → J4W 05-29 02:26 → JERBED 05-29 02:26
PROVIDERS: ADMIT Internal Medicine; ATTEND Internal Medicine
DX: G40.909 Epilepsy, unspecified, not intractable, without status epilepticus (principal); Q04.0 Congenital malformations of corpus callosum; F73 Profound intellectual disabilities; N39.0 Urinary tract infection, site not specified; Q02 Microcephaly; R62.59 Other lack of expected normal physiological development in childhood; J45.909 Unspecified asthma, uncomplicated; M81.0 Age-related osteoporosis without current pathological fracture; M41.9 Scoliosis, unspecified; F88 Other disorders of psychological development; Q65.89 Other specified congenital deformities of hip; B96.89 Other specified bacterial agents as the cause of diseases classified elsewhere
CPT/HCPCS: 36415; 71045-TC-FY; 80053; 80156; 80175; 81003; 81015; 82550; 82553; 82803; 83605; 84484; 85025; 85610; 87040; 87086; 87186; 90688; 93005; 93010; 99283-25; G0008; J1644; J7030

== ENCOUNTER 2018-12-22 15:16 | Emergency (ER) | payer OTHER ==
[2018-12-22 15:44] VITALS: BP 118/91; PULSE 82; TEMP 97.9; BMI 18.2
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
== END 2018-12-22 18:01 | disposition home or self-care (01) ==
LOC: JER 15:16
DX: Z04.1 Encounter for examination and observation following transport accident (principal); V59.59XA Passenger in pick-up truck or van injured in collision with other motor vehicles in traffic accident, initial encounter; Y92.414 Local residential or business street as the place of occurrence of the external cause; Y93.89 Activity, other specified; Y99.8 Other external cause status; J45.909 Unspecified asthma, uncomplicated; G40.909 Epilepsy, unspecified, not intractable, without status epilepticus; R62.50 Unspecified lack of expected normal physiological development in childhood; Q02 Microcephaly
CPT/HCPCS: 99281-25

== ENCOUNTER 2019-05-22 19:47 | Emergency (ER) | payer OTHER ==
--- NOTE | 2019-05-22 20:00 | PDOC ---
Rapid Medical Evaluation Medical Evaluation: Allergies Allergy/AdvReac Type Severity Reaction Status Date / Time apple [Apple] AdvReac Verified 05/28/18 16:34 BABY POWDER AdvReac Mild Uncoded 05/28/18 16:34 I have performed a brief in-person evaluation of this patient. The patient presents with a chief complaint of: from [place] with h/o corpus callosum, microcephaly, epilepsy, asthma, osteoporosis, profound mental retardation, scoliosis, congenital bilateral hip dysplasia presents as had 2 seizures today and has not eaten for x 2 days; is on carbamezipine and tegretol for seizures; is compliant with meds per staff; unsure of duration of seizure and if any trauma Pertinent physical exam findings: In NAD, no obvious trauma noted I have ordered the following: Labs The patient will proceed to the ED for further evaluation. 05/22/19 19:57
[2019-05-22 20:34] LABS: BASO % 0.2 % (0-2.0); HEMATOCRIT 36.3 % (35.4-49); HEMOGLOBIN 12.1 GM/dL (11.7-16.9); LYMPH % 21.4 % (8-40); MCHC 33.2 g/dl (32.0-35.9); MEAN CELL VOLUME 93.2 fl (80-96); MEAN PLT VOLUME 9.4 fl (7.5-11.1); MONO % 6.9 % (3.8-10.2); NEUT % 71.5 % (42.8-82.8); PLATELET COUNT 183 K/MM3 (134-434); RDW 13.6 % (11.9-15.9); WHITE BLOOD COUNT 6.8 K/mm3 (4.0-10.0)
[2019-05-22 20:56] LABS: BILIRUBIN,TOTAL 0.5 mg/dL (0.2-1); BLOOD UREA NITROGEN 13.3 mg/dL (7-18); CALCIUM 9.4 mg/dL (8.5-10.1); CREATININE 1.1 mg/dL (0.55-1.3); MAGNESIUM 1.8 mg/dL (1.8-2.4); POTASSIUM 3.9 mmol/L (3.5-5.1); TOT PROT 6.5 g/dl (6.4-8.2)
[2019-05-22] MEDS ORDERED: SODIUM CHLORIDE 1,687 ML IV ONE (21:14)
--- NOTE | 2019-05-22 21:29 | PDOC ---
History of Present Illness - General Chief Complaint: Seizure Stated Complaint: Seizure Time Seen by Provider: 05/22/19 19:57 - History of Present Illness Initial Comments: 05/22/19 21:24 24 y/o M hx of epilepsy, microcephaly, osteoporosis, scoliosis, hip dysplasia from [place], presenting after 2 seizures this a.m which is unusual for him per his caregiver. He has been refusing food for the last 2 days and has not had a bowel movement in 3 days. Enema was attempted today and was productive of watery non-bloody diarrhea. He has had one episode of non-bloody emesis. Per caregiver no fevers at [place], no chills, no coughing, shortness of breath. Pt is more lethargic than usual. Past History - Past Medical History Allergies/Adverse Reactions: Allergies Allergy/AdvReac Type Severity Reaction Status Date / Time apple [Apple] AdvReac Verified 05/22/19 20:07 BABY POWDER AdvReac Mild Uncoded 05/22/19 20:07 Home Medications: Ambulatory Orders Calcium 250Mg/Vit-D 125 Units [Oscal 250 mg+D -] 1 combo PO BID 12/13/13 Carbamazepine [Tegretol -] 300 mg PO BID 12/13/13 Cholecalciferol (Vitamin D3) [Vitamin D3] 2,000 unit PO DAILY 12/13/13 Docusate Sodium [Colace -] 300 mg PO TID 12/13/13 Multivitamin [Multivitamins] 1 each PO DAILY 12/13/13 Sennosides [Senokot] 8.6 mg PO BID 12/13/13 Sodium Chloride [Saline Nose [place]] 45 ml NS TID 12/13/13 clonazePAM [KlonoPIN] 0.5 mg PO TID 12/13/13 Acetaminophen [Feverall] 650 mg RC PRN PRN 05/23/19 Albuterol 0.083% Nebulizer Celena [Ventolin 0.083% Nebulizer Soln -] 1 amp NEB PRN PRN 05/23/19 Benzoyl Peroxide 5% Gel - 1 applic TP BID 05/23/19 Diazepam 10 mg PO ASDIR 05/23/19 Diazepam *Pediatric Rectal* [Diastat *Pediatric Rectal Gel* -] 2.5 mg RC PRN PRN 05/23/19 Lamotrigine [LaMICtal -] 200 mg PO BID 05/23/19 Methylcellulose [Citrucel] 500 mg PO ONCE 05/23/19 Anemia: No Asthma: Yes Cancer: No Cardiac Disorders: No CVA: No COPD: No CHF: No Dementia: No Diabetes: No GI Disorders: No Disorders: No HTN: No Hypercholesterolemia: No Liver Disease: No Seizures: Yes (EPILEPSY) Thyroid Disease: No - Immunization History Immunization Up to Date: Yes - Suicide/Smoking/Psychosocial Hx Smoking History: Never smoked Have you smoked in the past 12 months: No Number of Cigarettes Smoked Daily: 0 Information on smoking cessation initiated: No Hx Alcohol Use: No Drug/Substance Use Hx: No Substance Use Type: None Hx Substance Use Treatment: No Review of Systems - Review of Systems Comments:: 05/22/19 23:15 ltd, patient is non verbal. little information obtainable received from caregiver Constitutional: No: Chills, Night Sweats Respiratory: No: Wheezing ABD/GI: Yes: Constipated. No: Blood Streaked Bowels, Rectal Bleeding : No: Discharge, Hematuria *Physical Exam - Vital Signs Last Vital Signs Temp Pulse Resp BP Pulse Ox 99.6 F 100 H 19 87/64 L 96 05/22/19 20:04 05/22/19 20:04 05/22/19 20:04 05/22/19 20:04 05/22/19 20:04 - Physical Exam General Appearance: Yes: Nourished, Appropriately Dressed Neck: positive: Trachea midline, Supple Respiratory/Chest: positive: Lungs Clear, Normal Breath Sounds. negative: Respiratory Distress, Rales, Wheezing Cardiovascular: positive: Regular Rhythm, Regular Rate, S1, S2. negative: JVD Gastrointestinal/Abdominal: positive: Normal Bowel Sounds, Flat, Soft Rectal Exam: positive: normal exam, normal rectal tone. negative: melena, decreased tone, hemorrhoids Musculoskeletal: positive: Other (contractures arms flexed at elbow bilaterally) Extremity: positive: Normal Capillary Refill Integumentary: positive: Normal Color, Dry, Warm Neurologic: positive: Alert ED Treatment Course - LABORATORY CBC & Chemistry Diagram: 05/22/19 20:16 05/22/19 20:16 - ADDITIONAL ORDERS Additional order review: Laboratory Results 05/22/19 05/22/19 20:16 20:16 Sodium 141 Potassium 3.9 Chloride 104 Carbon Dioxide 31 Anion Gap 6 L BUN 13.3 Creatinine 1.1 Est GFR (CKD-EPI)AfAm 106.81 Est GFR (CKD-EPI)NonAf 92.16 Random Glucose 158 H Calcium 9.4 Magnesium 1.8 Total Bilirubin 0.5 AST 39 H ALT 30 Alkaline Phosphatase 90 Total Protein 6.5 Albumin 4.0 Carbamazepine 16.0 05/22/19 20:16 RBC 3.90 L MCV 93.2 MCHC 33.2 RDW 13.6 MPV 9.4 D Neutrophils % 71.5 D Lymphocytes % 21.4 D Monocytes % 6.9 Eosinophils % 0.0 D Basophils % 0.2 Medical Decision Making - Medical Decision Making 05/22/19 21:29 24 y/o M hx of epilepsy, microcephaly, osteoporosis, scoliosis, hip dysplasia from [place], presenting after 2 seizures this a.m which is unusual for him per his caregiver. Sepsis work up initiated 05/22/19 23:18 Rectal temp 100.6 at 10 pm lactic acid 1.8 05/22/19 23:34 EKG: normal sinus rhythm, rightward axis, borderline EKG 05/23/19 02:27 CT abdomen There is no bowel obstruction or inflammation. There is a moderately large stool burden throughout the colon. Negative for diverticulitis or colitis. Negative for appendicitis. No free intraperitoneal air or free fluid. Normal liver. No obvious gallbladder abnormalities. Normal spleen. Normal pancreas Normal adrenal glands. Normal kidneys urinary tracts and urinary bladder. Osseous structures are intact. CT head No acute intracranial abnormality is identified. No hemorrhage. No mass. No obvious infarcts. The configuration of the ventricles bring up the possibility of congenital brain abnormalities. 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 Is there a known history of congenital brain abnormalities causing seizures? If not, MRI would be helpful for workup. 05/23/19 02:42 femur x-ray shows spiral femur fracutre distally. dr ngo/jennifer service contacted message left. will hear from RENATA Parson 05/23/19 03:00 Per Ortho PA pt cam be discharged due to contractures and baseline non- ambulatory condition, pt. 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 Accompanying caregiver is not aware of any fall or how the patient could have acquired injury. 05/23/19 03:05/23/19 03:29 *DC/Admit/Observation/Transfer Diagnosis at time of Disposition: Femur fracture, left Qualifiers: Encounter type: initial encounter Femur location: distal, unspecified portion Fracture type: closed Fracture morphology: unspecified fracture morphology Qualified Code(s): S72.402A - Unspecified fracture of lower end of left femur, initial encounter for closed fracture - Discharge Dispostion Decision to Admit order: No - Referrals Referrals: Vanessa Adames MD [Primary Care Provider] - Yunior Ngo MD [Staff Physician] - Chai Fragoso MD [Staff Physician] - - Patient Instructions Additional Instructions: Pt was seen for complaint of seizures, and decreased oral intake. Pt found to have a closed fracture of his left thigh. 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 We have equally attached contact information for two of our orthopedic specialists. Care should be taken when transferring patient, since he is ambulatory. avoid excessive movement of leg or applying pressure. - Post Discharge Activity
[2019-05-22 23:35] LABS: PH,URINE 6.5 (5.0-8.0); URINE APPEARANCE CLEAR; URINE BILIRUBIN NEGATIVE (NEGATIVE); URINE COLOR YELLOW; URINE GLUCOSE (UA) NEGATIVE (NEGATIVE); URINE KETONE NEGATIVE (NEGATIVE); URINE LEUK ESTERASE NEGATIVE (NEGATIVE); URINE NITRITE NEGATIVE (NEGATIVE); URINE PROTEIN TRACE (NEGATIVE); URINE UROBILINOGEN 0.2 mg/dL (0.2-1.0)
--- NOTE | 2019-05-22 23:40 | PDOC ---
Documentation entered by Kati Pate SCRIBE, acting as scribe for Leonid Elizabeth MD. Leonid Elizabeth MD: This documentation has been prepared by the Herlinda solorzano Xhesika, SCRIBE, under my direction and personally reviewed by me in its entirety. I confirm that the documentation accurately reflects all work, treatment, procedures, and medical decision making performed by me. Attending Attestation - Resident Resident Name: Burt Kenny - ED Attending Attestation I have performed the following: I have examined & evaluated the patient, The case was reviewed & discussed with the resident, I agree w/resident's findings & plan, Exceptions are as noted - HPI HPI: 05/22/19 23:07 The patient is a 24 year old male with a PMH of corpus callosum, microcephaly, epilepsy, seizure (on carbamazepine and tegretol), asthma, osteoporosis, profound mental retardation, scoliosis, congenital bilateral hip dysplasia who presents to the ED [facility] from [place] with 2 seizures this AM. As per caregiver at bedside, the patient has not eaten in 2 days and has not had a BM for the past 3 days, however, the patient had 1 episode of watery diarrhea after and enema was attempted. Caregiver notes the patient has been more tired lately and endorsed 1 episode of vomiting. Caregiver denies shortness of breath, chills, cough, nausea, and constipation. Allergies:, NKDA. apple, baby powder Labs unremarkable, CT pending, Dr. Barkley to follow up results and dispo - Physicial Exam PE: 05/22/19 23:08 Vitals: Triage Vital signs reviewed General Appearance: no acute distress Chest Wall: Nontender Cardiac: Regular rate and rhythm, no murmurs, no rubs, no gallops, Lungs: Clear to auscultation bilateral, good air movement bilaterally, Abdomen: Soft, nondistended, normal bowel sounds, nontender to palpation Extremities: (+) contracted, deformity to left leg Skin: Warm and dry, no rashes or lesions, no petechiae - Medical Decision Making 05/23/19 01:47 The patient is a 24 year old male with a PMH of corpus callosum, microcephaly, epilepsy, seizure (on carbamazepine and tegretol), asthma, osteoporosis, profound mental retardation, scoliosis, congenital bilateral hip dysplasia who presents to the ED [facility] from [place] with 2 seizures this AM. As per caregiver at bedside, the patient has not eaten in 2 days and has not had a BM for the past 3 days, however, the patient had 1 episode of watery diarrhea after and enema was attempted. Caregiver notes the patient has been more tired lately and endorsed 1 episode of vomiting. Caregiver denies shortness of breath, chills, cough, nausea, and constipation. Allergies:, NKDA. apple, baby powder Labs unremarkable, CT pending, Dr. Barkley to follow up results and dispo 05/23/19 01:47
[2019-05-23 04:27] VITALS: BP 111/74; PULSE 79; TEMP 97.9
--- NOTE | 2019-05-23 23:46 | EKG ---
Test Reason : Blood Pressure : / mmHG Vent. Rate : 098 BPM Atrial Rate : 098 BPM P-R Int : 138 ms QRS Dur : 102 ms QT Int : 352 ms P-R-T Axes : 078 096 061 degrees QTc Int : 449 ms NORMAL SINUS RHYTHM RIGHTWARD AXIS BORDERLINE ECG WHEN COMPARED WITH ECG OF 28-MAY-2018 16:57, VENT. RATE HAS INCREASED BY 42 BPM QT HAS LENGTHENED Confirmed by YENY NOWAK, MATHIEU ([id number]) on 05/23/2019 11:46:26 PM Referred By: Confirmed By:MATHIEU SAINI MD
== END 2019-05-23 06:11 | disposition home or self-care (01) ==
LOC: JER 19:47
PROC: 3E0337Z Introduction of Electrolytic and Water Balance Substance into Peripheral Vein, Percutaneous Approach (ICD-10-PCS; principal; 2019-05-22)
DX: G40.909 Epilepsy, unspecified, not intractable, without status epilepticus (principal); S72.402A Unspecified fracture of lower end of left femur, initial encounter for closed fracture; R50.9 Fever, unspecified; J45.909 Unspecified asthma, uncomplicated; M19.90 Unspecified osteoarthritis, unspecified site; M41.9 Scoliosis, unspecified; Q65.89 Other specified congenital deformities of hip; Q02 Microcephaly; Z91.018 Allergy to other foods; Z91.048 Other nonmedicinal substance allergy status; X58.XXXA Exposure to other specified factors, initial encounter; Y93.89 Activity, other specified; Y92.89 Other specified places as the place of occurrence of the external cause; Y99.8 Other external cause status
CPT/HCPCS: 36415; 70450-TC; 71045-TC-FY; 73552-TC-LT-FY; 74177-TC; 80053; 80175; 81003; 83605; 83735; 85025; 87040; 87086; 93005; 93010; 99284-25; J7030